=== PATIENT | male | born 1980 | race Caucasian/White ===

== ENCOUNTER 2024-10-13 10:51 | Emergency (ER) | payer OTHER, SELFPAY ==
[2024-10-13 10:56] VITALS: BP 137/88; PULSE 98; RESP 20; TEMP 36.7; O2SAT 94
--- NOTE | 2024-10-13 11:24 | ED.GENADUL_ITS ---
Discharge Plan Disposition Patient Disposition: Home Condition: Stable Discharge Details Clinical Impression: Sinusitis Primary Care Provider: Radha Zuniga ED Provider: Lulú Davis Home Meds and New Rx's Prescriptions: New Flonase Sensimist 27.5 mcg/actuation spray,suspension 1 spray intranasal DAILY PRN (Reason: nasal congestion) 7 Days Qty: 6.6 0RF Rx Instructions: into each nostril amoxicillin-pot clavulanate 875-125 mg tablet 1 tab PO BID 7 Days Qty: 14 0RF Rx Instructions: Take 1 tablet by mouth twice daily for the next 7 days prednisone 50 mg tablet 50 mg PO DAILY 5 Days Qty: 5 0RF Rx Instructions: Take 1 tablet daily for the next 5 days No Action diphenhydramine HCl [Allergy Medication] 25 mg capsule 25 mg PO DAILY PRN Discharge Instructions Instructions: How to Use Nose Drops, Sprays, Pumps, and Gels, Sinusitis, Adult ED Additional Instructions: Please take the medications as directed. You may use the Flonase nasal spray 1 spray in each nostril daily. Take the Augmentin with yogurt or a probiotic and the tablet of prednisone once a day. This will help decrease the inflammation in your throat and your airway. You were given a steroid here in the department as well. Return to the ER for any worsening swelling in your throat, trouble breathing or concerns. Follow up with primary care provider in 3-5 days. Return to ED sooner if any worsening or concerns. Please take Tylenol or Ibuprofen with food every 4-6 hours as needed for pain and swelling. Referrals: Primary Care Provider [Outside] - 5 days Discharge Data Discharge Date/Time-TO BE ENTERED AT DEPARTURE: 10/13/24 11:52 HPI General Mode of arrival: ambulatory . Date/Time Provider Initiated Documentation: 10/13/24 11:06 . Limitations to Documentation: no limitations . Information obtained by: patient, RN notes reviewed and old records reviewed . HPI Narrative: 44-year-old male presents to the ER with a chief complaint of swelling in the back of his throat, sinus pressure and drainage for the last couple of weeks. He reports this morning he was trying to flush out his nostrils was not able to decrease the sensation of fullness in the back of his throat. He does have a swollen uvula which is midline, no exudate noted. Boggy nasal turbinates, reports green discharge. Denies any fever or chills. Related Data Home Medications ?Medication ?Instructions ?Recorded ?Confirmed amoxicillin 875 mg-potassium 1 tab PO BID Sinusitis 7 days #14 10/13/24 clavulanate 125 mg tablet tabs diphenhydramine HCl 25 mg capsule 25 mg PO DAILY PRN 10/13/24 10/13/24 (Allergy Medication) fluticasone furoate 27.5 1 spray intranasal DAILY PRN nasal 10/13/24 mcg/actuation nasal congestion 7 days #6.6 mL spray,suspension (Flonase Sensimist) prednisone 50 mg tablet 50 mg PO DAILY Inflammation 5 days 10/13/24 #5 tabs Previous Rx's ?Medication ?Instructions ?Recorded amoxicillin 875 mg-potassium 1 tab PO BID Sinusitis 7 days #14 10/13/24 clavulanate 125 mg tablet tabs fluticasone furoate 27.5 1 spray intranasal DAILY PRN nasal 10/13/24 mcg/actuation nasal congestion 7 days #6.6 mL spray,suspension (Flonase Sensimist) prednisone 50 mg tablet 50 mg PO DAILY Inflammation 5 days 10/13/24 #5 tabs General Stated Complaint: RespSymp JAYNA: 3 Review of Systems All systems reviewed & are unremarkable except as noted in HPI and below Constitutional Constitutional: Reports headache(s) ENT Ears, Nose, Mouth, and Throat: Reports as per HPI, Reports facial pain, Reports headache(s), Reports nasal congestion, Reports nasal discharge, Reports nasal obstruction, Reports sinus pressure and Reports throat swelling Respiratory Respiratory: Reports cough, Denies stridor and Denies wheezing Neurologic Neurologic: Reports headache(s) Allergic/Immunologic Allergic/Immunologic: Reports throat swelling and Denies wheezing Exam [facility] Head: normal to inspection General nose exam: external nose normal and other (Boggy nasal turbinates) Face and sinus: normal facial exam Mouth: no muffled voice Teeth and gingiva: dentition normal Throat: uvula midline, posterior oropharynx abnormal erythema and uvular edema Resp Effort & Inspection: normal respiratory effort, able to speak in complete sentences, no audible wheezes, not labored and no nasal flaring Auscultation: clear to auscultation bilaterally Course Vital Signs Vital signs: Vital Signs Temperature 36.7 C 10/13/24 10:56 Pulse 98 H 10/13/24 10:56 Respiratory Rate 20 10/13/24 10:56 Blood Pressure 137/88 10/13/24 10:56 Pulse Oximetry 94 10/13/24 10:56 Temperature 36.7 C 10/13/24 10:56 Pulse 98 H 10/13/24 10:56 Respiratory Rate 20 10/13/24 10:56 Respiratory Effort Non-Labored 10/13/24 11:10 Respiratory Depth Normal 10/13/24 11:10 Blood Pressure 137/88 10/13/24 10:56 Blood Pressure Position Sitting 10/13/24 10:56 Pulse Oximetry 94 10/13/24 10:56 Oxygen Delivery Method Room Air 10/13/24 10:56 Oxygen Flow Rate 0 10/13/24 10:56 Medical Decision Making 44-year-old male presents to the ER with a chief complaint of swelling in the back of his throat, sinus pressure and drainage for the last couple of weeks. He reports this morning he was trying to flush out his nostrils was not able to decrease the sensation of fullness in the back of his throat. He does have a swollen uvula which is midline, no exudate noted. Boggy nasal turbinates, reports green discharge. Denies any fever or chills. Will treat for sinusitis due to the length and amount of time symptoms have been present, will give dexamethasone p.o. here in the department and give 5 days of prednisone daily. Will discuss fluticasone nasal spray as well. Patient remained hemodynamically stable, alert and oriented speaking in full sentences, no stridor. This text was generated using [employer] dictation system, please disregard any oddities of phrase or misspellings. Quality:SDOH Health Related Social Needs: No Data to Display PFSH All Active Problems (Updated 10/13/24 @ 11:27 by Lulú Davis NP) Sinusitis (Acute) Social History Smoking/Tobacco Use Status: Never Smoking risk assessment performed?: Yes Alcohol Intake: current Alcohol Intake frequency: holidays/special occasions only Drug use: Never
[2024-10-13] MEDS: Amoxicillin 875/Clav. 125 TAB PO (11:34)
[2024-10-13] MEDS: Dexamethasone 10 MG/ML VIAL PO (11:34)
[2024-10-13 11:39] VITALS: BP 137/90; PULSE 72; RESP 22; TEMP 36.8; O2SAT 98
[2024-10-13 11:50] VITALS: BP 132/84; PULSE 88; RESP 20; O2SAT 98
== END 2024-10-13 11:52 | disposition home or self-care (01) ==
PROVIDERS: Emergency Provider Registered Nurse Emergency; PCP Nurse Practitioner
DX: J01.90 Acute sinusitis, unspecified (principal)
CPT/HCPCS: 99283; J1100